=== PATIENT | female | born 1985 | race Caucasian/White ===

== ENCOUNTER → 2016-05-01 | Outpatient (CLI) | payer MEDICAID ==
--- NOTE | 2016-05-01 18:22 | DX ---
Bilateral Hands 2 Views History: Polyarthralgia. Comparison: None available. Findings: Right: No fractures identified. Alignment is normal. Bone island is noted in the proximal phalanx of the thumb. No erosions are identified. There is no significant degenerative change. There is no focal soft tissue swelling or soft tissue calcifications. Left: No fractures identified. Alignment is normal. Bone island is noted in the middle phalanx of the third finger. No erosions are identified. There is no significant degenerative change. There is no f ocal soft tissue swelling or soft tissue calcifications Impression: No visible etiology for the patient's symptoms.
--- NOTE | 2016-05-01 18:32 | DX ---
Bilateral elbows 3 views History: Polyarthralgia. Comparison: None available. Findings: Left:No fracture is identified. Alignment is normal. Bone mineralization is normal. There is no signi ficant degenerative change. There is no joint effusion. Right: No fracture is identified. Alignment is normal. Bone mineralization is normal. There is no sig nificant degenerative change. There is no joint effusion. Impression: No visible etiology for the patient's pain.
== END ==
LOC: BRMIMAGING 14:25
PROVIDERS: ATTEND Internal Medicine
DX: M25.521 Pain in right elbow (principal); M25.522 Pain in left elbow; M25.541 Pain in joints of right hand; M25.542 Pain in joints of left hand
CPT/HCPCS: 73080-PO; 73130-PO